=== PATIENT | male | born 1945 | race Caucasian/White ===

== ENCOUNTER 2017-01-04 09:54 | Inpatient (IN) | payer OTHER, MEDICARE ==
[~2017-01-04 09:54] MED LIST: BACITRACIN 50,000 UNITS/10 ML SYR IRR ONE; BUPIVACAINE/EPI 0.25% 30 ML SDV ONE; CHLORHEXIDINE GLUC HIBICLENS 118 ML BTL TP ONE; SKIN ADHESIVE (DERMABOND) 1 EACH TP ONE; THROMBIN (BOVINE) 20,000 UNIT VIAL TP ONE; ceFAZolin 2 GM/DEXTROSE 100 ML IV ONE
[2017-01-04] MEDS ORDERED: LIDOCAINE 1% 5 ML SDV ID PRN (10:15)
[2017-01-04] MEDS ORDERED: LR 1,000 ML IV ONE (10:15)
[2017-01-04] MEDS ORDERED: CEFAZOLIN 2 GM/DEXTROSE/100 ML BAG IV ONE (10:25)
[2017-01-04] MEDS ORDERED: morphINE PF 5 MG/10 ML INJ IT ONE (10:30)
[2017-01-04] MEDS ORDERED: MIDAZOLAM 2 MG/2 ML VIAL ONE (11:49)
[2017-01-04] MEDS ORDERED: KETAMINE 100 MG/10 ML SYR IVP ONE (11:59)
[2017-01-04] MEDS ORDERED: fentaNYL 100 MCG/2 ML INJ ONE ×2 (11:59→17:44)
[2017-01-04] MEDS ORDERED: REMIFENTANIL HCL 1 MG VIAL ONE ×2 (11:59→15:16)
[2017-01-04] MEDS ORDERED: PROPOFOL 200 MG/20 ML VIAL ONE (11:59)
[2017-01-04] MEDS ORDERED: PROPOFOL/EMULSION 500 MG/50 ML BOTTLE IV ONE ×2 (12:00→15:16)
[2017-01-04] MEDS ORDERED: BUPIVACAINE/EPI 0.25% 30 ML SDV ONE (12:11)
[2017-01-04] MEDS ORDERED: PETROLAT,WHT/MIN OIL/SOD CHL 3.5 GM OPHT.OINT ONE (12:12)
[2017-01-04] MEDS ORDERED: THROMBIN (BOVINE) 5,000 UNIT VIAL TP ONE (13:05)
[2017-01-04] MEDS ORDERED: morphINE PF 5 MG/10 ML INJ ONE (15:41)
[2017-01-04] MEDS ORDERED: SKIN ADHESIVE (DERMABOND) 1 EACH TP ONE (16:54)
[2017-01-04] MEDS ORDERED: ONDANSETRON 4 MG/2 ML VIAL IVP PRN (17:22)
[2017-01-04] MEDS ORDERED: LACTULOSE 20 GM/30 ML UDCUP PO PRN (17:22)
[2017-01-04] MEDS ORDERED: ONDANSETRON DISINTEGRATING 4 MG TAB PO PRN (17:22)
[2017-01-04] MEDS ORDERED: MAGNESIUM HYDROXIDE 30 ML UDCUP PO PRN (17:22)
[2017-01-04] MEDS ORDERED: BISACODYL 10 MG SUPP PR PRN (17:22)
[2017-01-04] MEDS ORDERED: DIAZEPAM 10 MG/2 ML SYR IVP PRN (17:22)
[2017-01-04] MEDS ORDERED: diphenhydrAMINE 25 MG CAP PO PRN (17:22)
[2017-01-04] MEDS ORDERED: POLYETHYLENE GLYCOL 3350 17 GM PKT PO PRN (17:22)
[2017-01-04] MEDS ORDERED: NS W/ 20 KCl/L 1,000 ML IV SCH (17:30)
--- NOTE | 2017-01-04 17:31 | POSTOPPROG ---
Post Op Note Date of Operation: 01/04/17 Surgeon: Jp Johnston Business Process Specialist: MONO Campa PAC Anesthesia: GET(General Endotracheal) Pre-op Diagnosis: lumbar stenosis Post-op Diagnosis: lumbar stenosis Indication: lumbar stenosis, failure of medical management Procedure: L2-L5 TLIF/PSF, L3-4 laminectomy Inf/Abcess present in the surg proc area at time of surgery?: No EBL: 250cc Drains: oJrge BRANDON Addendum - Addendum .: S: low back pain O: NAD A&Ox3 MAEx4 5/5 and equal in BUE and BLE. JAYA serosanguineous A/P: 71 y/o male s/p L3/4 laminectomy, L2-L5 PSF/TLIF -Advance diet as tolerated -Optimize pain management -PT/OT -DVT prophx: TEDs, SCDs, Lovenox okay POD1 -Post op xrays pending -Please notify NS with any change in neuro/motor exam
[2017-01-04] MEDS ORDERED: HYDROmorphONE/DILAUDID 1 MG/ML SYR ONE (17:56)
--- NOTE | 2017-01-04 18:19 | GOP ---
[f rep st] OPERATIVE REPORT DATE OF OPERATION: 01/04/2017 SURGEON: Jp Johnston MD STEAM LOCOMOTIVE FIRER/FIREMAN: Miesha Campa PA-C. ANESTHESIA: General. PREOPERATIVE DIAGNOSIS: 1. Lumbar spondylosis. 2. Spinal stenosis, severe at L3-L4, moderate at L2-3 and L4-5. 3. Scoliosis. 4. Treatment refractory to nonoperative intervention. POSTOPERATIVE DIAGNOSIS: 1. Lumbar spondylosis. 2. Spinal stenosis, severe at L3-L4, moderate at L2-3 and L4-5. 3. Scoliosis. 4. Treatment refractory to nonoperative intervention. PROCEDURE PERFORMED: 1. Posterior arthrodesis with approach to L2, L3, L4, and L5. 2. Posterolateral fusion with bilateral pedicle screw placement into L2, L3. L4 , and L5 from the [employer] System. 3. Decompressive laminectomy with bilateral medial facetectomies at L3-L4. 4. Right-sided L2-L3 transforaminal lumbar interbody fusion with a 7 x 28 mm titanium PEEK elevate cage filled with morselized autograft and allograft. 5. Right-sided L3-L4 transforaminal lumbar interbody fusion with a 7 x 28 mm titanium PEEK elevate cage filled with morselized autograft and allograft. 6. Right-sided L4-L5 transforaminal lumbar interbody fusion with an 8 x 28 mm titanium PEEK elevate cage filled with morselized autograft and allograft. 7. Posterolateral fusion on the left between L2 and L5 with morselized autograft and allograft. 8. Correction of lumbar scoliosis. 9. Use of intraoperative 3-D Stealth navigation. 10. Use of intraoperative fluoroscopy, less than 1 hour physician time. 11. Use of neuromonitoring. 12. Use of operating microscope. 13. Injection of preservative-free intrathecal narcotics. FINDINGS: Per imaging. SPECIMENS: None. ESTIMATED BLOOD LOSS: 250 mL. INDICATIONS: The patient is a 71-year-old gentleman who unfortunately has been suffering from low back pain with right lower extremity radiculopathy. He had evidence of lumbar spinal stenosis, worse at L3-L4 with spondylosis on the right side, L2-L3, L3-L4, L4-5 from scoliosis. After failing nonoperative intervention, after discussion of the risks, benefits, and treatment alternatives, we decided to proceed forth with surgery as described above. DESCRIPTION OF PROCEDURE: Patient was brought to the operating theater and underwent general endotracheal anesthesia without complications. Venodynes, RENU hose, and appropriate lines were placed by Anesthesia. He was flipped prone onto the Jorge table. All bony processes were inspected and padded. The lower lumbar region was prepped and draped in the usual sterile surgical fashion. A time-out was completed per protocol. The patient received antibiotics within 1 hour of incision. Using lateral fluoroscopy and a spinal needle, we picked our entry point to the L2 through L5 levels. This was marked in the midline. The incision then infiltrated with Marcaine with epinephrine. The incision was taken down with the scalpel blade, and using the monopolar, taken down the midline through the lumbodorsal fascia. A subperiosteal dissection carried out to the transverse processes of L2, L3, L4, L5. Care was taken to preserve the L1 and L2 facet joints. Deep retractors were placed to maintain our exposure. We attached the 3D Stealth navigation clamp to the spinous process of L4 and completed a 3D Stealth navigation spin. Using 3D Stealth navigation, we placed the towboat pilot holes for the bilateral pedicle screws into L2, L3, L4, and L5. All holes were manually palpated with no evidence of any cortical breaches. We then tapped and placed 6.5 mm screws bilaterally into L2, L3, L4, and L5 from the [employer] system. Another 3D Stealth navigation spin demonstrated excellent placement of the hardware. At this point, the microscope was brought onto the field to assist with microscopic dissection and to maintain illumination and magnification. Using a combination of the bur tip on the drill, Kerrison punches, and Le[place]ell rongeur, we completed a decompressive laminectomy with bilateral medial facetectomies at L3-L4. We also completed on the right-side at L2-L3 and L4-L5, hemilaminotomies with medial facetectomies, foraminotomies, and then resected the pars between L2-L3, L3-L4, and L4-L5. We moved up to L2-L3, where we distracted the interspace. We completed a right-sided L2-3 diskectomy. We prepared the cartilaginous endplates and measured interbody space. We placed a 7 x 28 mm titanium PEEK elevate cage filled with morselized autograft and allograft anteriorly and towards the midline. We packed additional morcellized autograft in the disk space for the interbody fusion. We let down the distraction, moved down to L3-L4, where we distracted the L3-4 disk space on the right side. We completed a right L3-4 diskectomy. We prepared the cartilaginous endplates and measured the interbody space. We placed a 7 x 28 mm titanium PEEK elevate cage filled with morselized autograft and allograft anteriorly and toward the midline. We packed additional morcellized autograft into the disk space for the interbody fusion and then moved down to L4-5, where we again distracted the L4-5 disk space on the right side. We completed a right -sided L4-5 diskectomy and prepared the cartilaginous endplates. We measured the interbody space and placed an 8 x 20 mm titanium PEEK elevate cage filled with morselized autograft and allograft anteriorly toward the midline. We packed additional morcellized autograft in the disk space interbody fusion. We noted a correction of his scoliosis after placement of these distraction interbody cages. At this point, we decorticated the bone on the left side between L2 and L5. We irrigated the wound copiously with bacitracin irrigation. We placed 2 lordotic rods into the heads of the screws between L2 and L5 and secured them down with cap screws, which were tightened per the teacher assistant's setting. We placed morselized autograft and allograft on the left side between L2 and L5 for posterolateral fusion. We injected preservative-free intrathecal narcotics and left a drain in subfascial space. The wound was then closed in multiple layers using Vicryl sutures in deep layers and Dermabond for the skin. The patient's wounds were dressed sterilely. He was flipped supine onto the transport cart. He was still asleep at the time of this dictation. There were no complications and no noted changes on neuromonitoring throughout the procedure. COMPLICATIONS: None. /[id number]/MODL MTDD
[2017-01-04] MEDS: METHOCARBAMOL 750 MG TAB PO PRN (18:41)
[2017-01-04] MEDS: oxyCODONE IR 5 MG TAB PO PRN (18:41)
[2017-01-04] MEDS: SENNOSIDES/DOCUSATE SODIUM TAB PO SCH (19:48)
[2017-01-04] MEDS ORDERED: FAMOTIDINE 20 MG/NACL 50 ML IV SCH (21:00)
[2017-01-04] MEDS: DIAZEPAM 5 MG TAB PO PRN (21:40)
[2017-01-05] MEDS: oxyCODONE IR 5 MG TAB PO PRN ×5 (03:58→23:08)
[2017-01-05] MEDS: METHOCARBAMOL 750 MG TAB PO PRN ×3 (03:58→18:41)
[2017-01-05] MEDS ORDERED: NON-FORMULARY NEW DRUG (Losartan Potassium [Cozaar] 100 MG) PO SCH (09:00)
--- NOTE | 2017-01-05 10:05 | SOAPPROG ---
SOAP Progress Note Assessment/Plan: Assessment: POD1 s/p L2-S1 TLIF -Xrays -pain control -PT/OT/speech -TEDS/SCD's/Lovenox -Continue JAYA: 243 overnight -Follow wound drainage. Dry in dressing at this time -Call for change in neuro status 01/05/17 10:04 01/05/17 10:06 01/05/17 10:18 Subjective: Doing well. Leg pain completely resolved, some new anterior thigh numbness likely secondary to positioning will resolve, back pain well controlled, ambulating with PT. Per nursing dressing and bed were soaked this am with blood. Dressing was changed, wound c/d/i with no drainage or erythema. Objective: Vital Signs Temp Pulse Resp BP Pulse Ox 37.6 C 84 16 115/76 96 01/05/17 07:33 01/05/17 07:33 01/05/17 07:33 01/05/17 07:33 01/05/17 07:33 01/04/17 01/05/17 01/06/17 05:59 05:59 05:59 Intake Total 3050 Output Total 1783 950 Balance 1267 -950 AandOx3, PERRL, EOMI, no facial asymmetry or tongue deviation, MAEWx4 5/5, Dressing C/D/I drain with 243 out since surgery - Pending Discharge Pending Discharge Within 24 Hours: No Pending Discharge Within 48 Hours: Yes Pending Discharge Date: 01/07/17 Pending Discharge Time: 11:00 ICD10 Worksheet Patient Problems: Problems Problem Status Onset Scoliosis Acute Scoliosis Acute - ICD10 Problem Qualifiers (1) Scoliosis Qualifiers: Scoliosis type: S Idiopathic scoliosis type: I Spinal region: S (2) Scoliosis Qualifiers: Scoliosis type: S Idiopathic scoliosis type: I Spinal region: S
[2017-01-05] MEDS: LOSARTAN POTASSIUM 50 MG TAB PO SCH (10:09)
[2017-01-05] MEDS: LEVOTHYROXINE 100 MCG TAB PO SCH (10:09)
[2017-01-05] MEDS: SENNOSIDES/DOCUSATE SODIUM TAB PO SCH ×2 (10:10→23:09)
[2017-01-05] MEDS: FAMOTIDINE 20 MG TAB PO SCH ×2 (10:10→23:09)
[2017-01-05] MEDS: DIAZEPAM 5 MG TAB PO PRN ×2 (12:42→23:09)
[2017-01-05] MEDS: ACETAMINOPHEN 325 MG TAB PO PRN ×2 (14:37→23:28)
[2017-01-05] MEDS: ENOXAPARIN 40 MG/0.4 ML SYR SC SCH (18:40)
[2017-01-05 20:07] LABS: COLOR YELLOW; LEUKOCYTE ESTERASE,URINE NEGATIVE (NEGATIVE); NITRITE,URINE NEGATIVE (NEGATIVE)
[2017-01-06] MEDS: oxyCODONE IR 5 MG TAB PO PRN ×5 (03:34→21:38)
[2017-01-06] MEDS: METHOCARBAMOL 750 MG TAB PO PRN ×3 (07:34→19:47)
[2017-01-06] MEDS: ACETAMINOPHEN 325 MG TAB PO PRN (07:34)
[2017-01-06] MEDS: FAMOTIDINE 20 MG TAB PO SCH ×2 (07:38→19:47)
[2017-01-06] MEDS: LEVOTHYROXINE 100 MCG TAB PO SCH (07:38)
[2017-01-06] MEDS: SENNOSIDES/DOCUSATE SODIUM TAB PO SCH ×2 (07:38→19:47)
[2017-01-06] MEDS: ENOXAPARIN 40 MG/0.4 ML SYR SC SCH (07:39)
[2017-01-06] MEDS: LOSARTAN POTASSIUM 50 MG TAB PO SCH (08:45)
--- NOTE | 2017-01-06 10:24 | SOAPPROG ---
SOAP Progress Note Assessment/Plan: Assessment: POD2 s/p L2-S1 TLIF -Xrays: hardware in good position -pain control: well controlled on orals -PT/OT -TEDS/SCD's/Lovenox -Continue JAYA: per nursing, 90ml since 5pm yesterday, drain removed -Hypotensin with systolic in 80's completely asymptomatic, fever w/u negative -likely home tomorrow -Call for change in neuro status 01/05/17 10:04 01/05/17 10:06 01/05/17 10:18 01/06/17 10:20 Subjective: Doig well, pain controlled on orals primarily, using IS, denies dizziness or other symptoms of hypotension although states when younger he had orthostatic hypotension regularly, leg pain resolved, drain slowed down, right anterior thigh numbness resolving Objective: Vital Signs Temp Pulse Resp BP Pulse Ox 38.1 C 69 12 89/50 L 94 01/06/17 08:46 01/06/17 08:46 01/06/17 08:46 01/06/17 08:46 01/06/17 08:46 01/05/17 01/06/17 01/07/17 05:59 05:59 05:59 Intake Total 3050 1560 Output Total 1783 4060 Balance 1267 -2500 AandOx3, PERRL, EOMI, no facial asymmetry or tongue deviation, MAEWx 4 5/5, +LT , incision c/d/i - Pending Discharge Pending Discharge Within 24 Hours: Yes Pending Discharge Date: 01/07/17 Pending Discharge Time: 11:00 ICD10 Worksheet Patient Problems: Problems Problem Status Onset Scoliosis Acute Scoliosis Acute - ICD10 Problem Qualifiers (1) Scoliosis Qualifiers: Scoliosis type: S Idiopathic scoliosis type: I Spinal region: S (2) Scoliosis Qualifiers: Scoliosis type: S Idiopathic scoliosis type: I Spinal region: S
[2017-01-06 13:09] LABS: % IMMATURE GRANULYOCYTES 0.1 % (0.0-1.1); ABSOLUTE IMMATURE GRANULOCYTES 0.01 10^3/uL (0.00-0.10); ADD DIFF? NO; ADD MORPH? NO; ADD SCAN? NO; ATYPICAL LYMPHOCYTE FLAG 0 (0-99); FRAGMENT RBC FLAG 0 (0-99); HEMATOCRIT 37.2 % (40.0-51.0); HEMOGLOBIN 12.7 g/dL (13.7-17.5); LEFT SHIFT FLG 0 (0-99); LIPEMIA HEMOLYSIS FLAG 90 (0-99); MEAN CELL HEMOGLOBIN 34.1 pg (27.9-34.1); MEAN CELL HEMOGLOBIN CONCENTR. 34.1 g/dL (32.4-36.7); MEAN PLATELET VOLUME 10.7 fL (8.7-11.7); PLATELET CLUMPS FLAG 10 (0-99); PLATELET COUNT 135 10^3/uL (150-400); RED BLOOD CELL COUNT 3.72 10^6/uL (4.40-6.38); RED CELL DISTRIBUTION WIDTH 12.7 % (11.5-15.2)
[2017-01-06 14:17] VITALS: RESP 16
[2017-01-07] MEDS: oxyCODONE IR 5 MG TAB PO PRN ×3 (01:25→09:50)
[2017-01-07] MEDS: DIAZEPAM 5 MG TAB PO PRN (02:46)
[2017-01-07 08:06] VITALS: BP 102/63; PULSE 79; TEMP 100; O2SAT 93
[2017-01-07] MEDS: LOSARTAN POTASSIUM 50 MG TAB PO SCH (08:11)
[2017-01-07] MEDS: LEVOTHYROXINE 100 MCG TAB PO SCH (08:11)
--- NOTE | 2017-01-07 08:11 | NEUSURGPN ---
Assessment/Plan: POD3 s/p L2-S1 TLIF -Xrays: hardware in good position -pain control: well controlled on orals -PT/OT -TEDS/SCD's/Lovenox -likely home today -Call for change in neuro status Subjective: low back pain. Denies any dizziness, leg pain improved. Objective: NAD A&Ox3 MAEx4 5/5 and equal in BUE and BLE. Catheter Insertion Date: 01/04/17 - Physician Patient Seen by : Vickie Neurosurgery Physical Exam - Vitals, I&O, Labs I and O 01/06/17 01/07/17 01/08/17 05:59 05:59 05:59 Intake Total 1560 400 Output Total 4060 500 Balance -2500 -100 Intake: Oral (ml) 1560 400 Output: Urine (ml) 3600 500 Catheter 1600 Toilet 1350 500 Urinal 650 Wound Drainage (ml) 460 Right Posterior Back 460 Jorge Reynoso Other: Intake Quantity Yes Sufficient Number of Voids Toilet 4 Vital Signs Temp Pulse Resp BP Pulse Ox 37.7 C 79 16 102/63 93 01/07/17 08:06 01/07/17 08:06 01/07/17 08:06 01/07/17 08:06 01/07/17 08:06 Laboratory Results 01/06/17 13:01 ICD10 Worksheet Patient Problems: Problems Problem Status Onset Scoliosis Acute Scoliosis Acute
[2017-01-07] MEDS: METHOCARBAMOL 750 MG TAB PO PRN (08:12)
[2017-01-07] MEDS: FAMOTIDINE 20 MG TAB PO SCH (08:12)
[2017-01-07] MEDS: SENNOSIDES/DOCUSATE SODIUM TAB PO SCH (08:12)
[2017-01-07] MEDS: ENOXAPARIN 40 MG/0.4 ML SYR SC SCH (08:13)
== END 2017-01-07 10:23 | disposition home or self-care (01) | DRG 460 ==
LOC: F3N 09:54
PROVIDERS: ADMIT Neurological Surgery; ATTEND Neurological Surgery
PROC: 8E0WXBZ Computer Assisted Procedure of Trunk Region (ICD-10-PCS; principal; 2017-01-04 11:45)
PROC: 00NY0ZZ Release Lumbar Spinal Cord, Open Approach (ICD-10-PCS; principal; 2017-01-04 11:45)
PROC: 4A1004G Monitoring of Central Nervous Electrical Activity, Intraoperative, Open Approach (ICD-10-PCS; principal; 2017-01-04 11:45)
PROC: 0SB20ZZ Excision of Lumbar Vertebral Disc, Open Approach (ICD-10-PCS; principal; 2017-01-04 11:45)
PROC: 0SG10AJ Fusion of 2 or more Lumbar Vertebral Joints with Interbody Fusion Device, Posterior Approach, Anterior Column, Open Approach (ICD-10-PCS; principal; 2017-01-04 11:45)
DX: M47.816 Spondylosis without myelopathy or radiculopathy, lumbar region (principal); M41.86 Other forms of scoliosis, lumbar region; M43.16 Spondylolisthesis, lumbar region; I10 Essential (primary) hypertension; E03.9 Hypothyroidism, unspecified
CPT/HCPCS: 97116-GP; 97161-GP; 97165-GO; 97530-GP; C1713; G8978-GP-CJ; G8979-GP-CI; G8980-GP-CI; G8987-GO-CI; G8988-GO-CI; G8989-GO-CI; J0690; J1170; J1650; J2250; J2274; J2704; J3010

== ENCOUNTER 2017-01-08 12:25 | Emergency (ER) | payer OTHER, MEDICARE ==
[2017-01-08 12:38] VITALS: RESP 18; TEMP 100.9
--- NOTE | 2017-01-08 13:00 | EDPHY ---
H & P Stated Complaint: Low Sats at home 73%, dry cough-back surgery 01/04 Time Seen by Provider: 01/08/17 12:58 HPI/ROS: CHIEF COMPLAINT: Hypoxemia HISTORY OF PRESENT ILLNESS: The patient presents to the ED for evaluation of hypoxemia. The patient is status post lumbar fusion done at the end of December. The patient has been using incentive spirometer home. The patient was noted to have an O2 sat of 73% prior to arrival. The patient does have a dry nonproductive cough which has been somewhat chronic. The patient denies weight gain, asymmetric calf pain or swelling, chest pain or additional complaints. The patient has no prior history of cardiac or pulmonary disease. REVIEW OF SYSTEMS: A comprehensive 10 point review of systems is otherwise negative aside from elements mentioned in the history of present illness. Source: Patient Exam Limitations: No limitations - Personal History Current Tetanus/Diphtheria Vaccine: Unsure Current Tetanus Diphtheria and Acellular Pertussis (TDAP): Unsure - Medical/Surgical History Hx Asthma: No Hx Chronic Respiratory Disease: No Hx Diabetes: No Hx Cardiac Disease: No Hx Renal Disease: No Hx Cirrhosis: No Hx Alcoholism: No Hx HIV/AIDS: No Hx Splenectomy or Spleen Trauma: No Other PMH: sciatica, HTN, GERD, hypothyroidism. knee surgery, S2-5 fusion-2016 - Social History Smoking Status: Former smoker - Physical Exam Exam: General Appearance: Alert, no distress Eyes: Pupils equal and round no pallor or injection ENT, Mouth: Mucous membranes moist Respiratory: There are no retractions, lungs are clear to auscultation Cardiovascular: Regular rate and rhythm Gastrointestinal: Abdomen is soft and nontender, no masses, bowel sounds normal Neurological: 5/5 strength noted bilateral upper lower extremities Skin: Surgical incision clean dry and intact Musculoskeletal: Neck is supple nontender Extremities: symmetrical, full range of motion Psychiatric: Patient is oriented X 3, there is no agitation Constitutional: Initial Vital Signs Temperature (C) 38.3 C 01/08/17 12:33 Heart Rate 98 01/08/17 12:33 Respiratory Rate 18 01/08/17 12:33 Blood Pressure 106/71 01/08/17 12:33 O2 Sat (%) 91 L 01/08/17 12:33 O2 Delivery Mode Room Air O2 (L/minute) 2.5 Allergies/Adverse Reactions: tramadol Allergy (Verified 01/08/17 12:38) Other-Enter Comments Home Medications: Medication Instructions Recorded Levothyroxine [Synthroid 100 mcg 100 mcg PO DAILY 08/24/15 (*)] Losartan Potassium [Cozaar] 100 mg PO DAILY 08/24/15 Multivitamins [Multivitamin (*)] 1 tab PO DAILY 12/17/16 Testosterone Cypionate 200 mg IM Q14D 12/17/16 Methocarbamol [Robaxin 750 mg (*)] 750 mg PO QID PRN #0 tab 01/07/17 Sennosides/Docusate Sodium 1 - 2 tab PO BID #0 tab 01/07/17 [Senokot-S] oxyCODONE IR [Oxycodone Ir (*)] 5 - 10 mg PO Q4HRS PRN #0 tab 01/07/17 Valium 01/08/17 Medical Decision Making - Diagnostics EKG Interpretation: EKG: Complete interpretation has been separately recorded in the [employer] archive. Summary impression: Sinus rhythm, rate 82, right axis deviation, nonspecific ST T wave changes noted Imaging: Imaging Impressions Chest/Thorax CTA 01/08/17 13:24 Impression: 1. No evidence of thrombopulmonary embolic disease. 2. Favor left lower lobe pneumonia or aspiration rather than atelectasis. 3. No suspicious pulmonary nodule or lymphadenopathy. Findings discussed with Emergency Department physician, Dr. Pierre Huizar, on January 08, 2017 at 1424 hours. ED Course/Re-evaluation: The patient presents to the ED for evaluation of hypoxemia during the postoperative period of a recent lumbar spine surgery. The patient was noted to have low-grade fever in the ED. The patient was significantly hypoxemic. The patient did have supplemental oxygen applied. The patient was taken for a stat CT scan of the chest which demonstrates pneumonia but no evidence of pulmonary embolism or other acute abnormality. The patient does have evidence of a pneumonia noted on his chest CT scan. He has an oxygen requirement of 2 liters/minute. The patient was offered admission to the hospital however feel strongly he wants to go home. The patient will be set up with home oxygen. The patient was started on Augmentin in the emergency department will be discharged on Augmentin. He will follow up with his primary care provider for a recheck in the next 2 days. The patient does understand return to the ED for worsening dyspnea or other concerns. Differential Diagnosis: Differential diagnosis considered includes pneumonia, bronchitis, pulmonary embolism, congestive heart failure - Data Points Laboratory Results: Laboratory Results 01/08/17 13:11 01/08/17 01/08/17 13:11 13:09 WBC 9.65 10^3/uL H 10^3/uL (3.80-9.50) RBC 3.67 10^6/uL L 10^6/uL (4.40-6.38) Hgb 12.3 g/dL L g/dL (13.7-17.5) POC Hgb 12.9 gm/dL L gm/dL (14.5-17.3) Hct 35.1 % L % (40.0-51.0) POC Hct 38 % L % (42.8-50.6) MCV 95.6 fL fL (81.5-99.8) MCH 33.5 pg pg (27.9-34.1) MCHC 35.0 g/dL g/dL (32.4-36.7) RDW 12.2 % % (11.5-15.2) Plt Count 210 10^3/uL D 10^3/uL (150-400) MPV 10.7 fL fL (8.7-11.7) Neut % (Auto) 83.6 % H % (39.3-74.2) Lymph % (Auto) 6.5 % L % (15.0-45.0) [place] % (Auto) 8.5 % % (4.5-13.0) Eos % (Auto) 0.6 % % (0.6-7.6) Baso % (Auto) 0.4 % % (0.3-1.7) Nucleat RBC Rel Count 0.0 % % (0.0-0.2) Absolute Neuts (auto) 8.06 10^3/uL H 10^3/uL (1.70-6.50) Absolute Lymphs (auto) 0.63 10^3/uL L 10^3/uL (1.00-3.00) Absolute Monos (auto) 0.82 10^3/uL H 10^3/uL (0.30-0.80) Absolute Eos (auto) 0.06 10^3/uL 10^3/uL (0.03-0.40) Absolute Basos (auto) 0.04 10^3/uL 10^3/uL (0.02-0.10) Absolute Nucleated RBC 0.00 10^3/uL 10^3/uL (0-0.01) Immature Gran % 0.4 % % (0.0-1.1) Immature Gran # 0.04 10^3/uL 10^3/uL (0.00-0.10) POC Sodium 133 mEq/L L mEq/L (134-144) POC Potassium 3.8 mEq/L mEq/L (3.3-5.0) POC Chloride 93 mEq/L L mEq/L (96-108) POC BUN 17 mg/dL mg/dL (7-23) POC Creatinine 1.6 mg/dL H mg/dL (0.8-1.5) POC Glucose 142 mg/dL H mg/dL (70-100) Medications Given: Discontinued Medications Amoxicillin/Clavulanate Potassium (Augmentin 875mg) 875 mg PO EDNOW ONE PRN Reason: Protocol Stop: 01/08/17 15:10 Last Admin: 01/08/17 15:33 Dose: 875 mg Sodium Chloride (Ns) 1,000 mls @ 0 mls/hr IV ONCE ONE PRN Reason: Wide Open Stop: 01/08/17 13:24 Last Admin: 01/08/17 13:29 Dose: 1,000 mls Point of Care Test Results: 01/08/17 13:09 POC Sodium 133 L POC Potassium 3.8 POC Chloride 93 L POC BUN 17 POC Creatinine 1.6 H POC Glucose 142 H Departure - Departure Disposition: Home, Routine, Self-Care Clinical Impression: Pneumonia Qualifiers: Pneumonia type: aspiration pneumonia Aspiration pneumonia type: due to gastric secretions Laterality: left Lung location: lower lobe of lung Qualified Code(s) : J69.0 - Pneumonitis due to inhalation of food and vomit Condition: Good Instructions: Community Acquired Pneumonia (ED) Additional Instructions: 1. Please take antibiotics as directed. 2. Please use oxygen as directed. 3. Please return to the ED for worsening shortness of breath or other concerns. You have been offered admission to the hospital for observation of your pneumonia and declined. Please follow-up with your primary care provider for a recheck in the 1-2 days. Referrals: Dani Chinchilla MD [Primary Care Provider] - As per Instructions
--- NOTE | 2017-01-08 13:20 | CPEKG ---
Heart Rate: 82 RR Interval: 732 P-R Interval: 172 QRSD Interval: 88 QT Interval: 364 QTC Interval: 425 P [place]: 71 QRS [place]: 100 T Wave [place]: -20 EKG Severity - ABNORMAL ECG - EKG Impression: SINUS RHYTHM EKG Impression: RIGHT AXIS DEVIATION Electronically Signed By: Pierre Huizar 08-Jan-2017 15:52:50
[2017-01-08] MEDS ORDERED: NS 1,000 ML IV ONE (13:23)
[2017-01-08] MEDS ORDERED: IOPAMIDOL (ISOVUE 370) 100 ML BTL IV ONE (13:38)
[2017-01-08 13:45] LABS: % IMMATURE GRANULYOCYTES 0.4 % (0.0-1.1); ABSOLUTE IMMATURE GRANULOCYTES 0.04 10^3/uL (0.00-0.10); ADD DIFF? NO; ADD MORPH? NO; ADD SCAN? NO; ATYPICAL LYMPHOCYTE FLAG 0 (0-99); FRAGMENT RBC FLAG 10 (0-99); HEMATOCRIT 35.1 % (40.0-51.0); HEMOGLOBIN 12.3 g/dL (13.7-17.5); LEFT SHIFT FLG 20 (0-99); LIPEMIA HEMOLYSIS FLAG 90 (0-99); MEAN CELL HEMOGLOBIN 33.5 pg (27.9-34.1); MEAN CELL VOLUME 95.6 fL (81.5-99.8); MEAN PLATELET VOLUME 10.7 fL (8.7-11.7); PLATELET CLUMPS FLAG 10 (0-99); PLATELET COUNT 210 10^3/uL (150-400); RED BLOOD CELL COUNT 3.67 10^6/uL (4.40-6.38); RED CELL DISTRIBUTION WIDTH 12.2 % (11.5-15.2)
[2017-01-08] MEDS ORDERED: AMOXICILLIN/CLAVULANATE POT 875/125 MG TAB PO ONE ×2 (15:09→16:37)
[2017-01-08 15:49] VITALS: BP 105/73; PULSE 72; O2SAT 86
== END 2017-01-08 17:05 | disposition home or self-care (01) ==
DX: J69.0 Pneumonitis due to inhalation of food and vomit (principal); I10 Essential (primary) hypertension; Z87.891 Personal history of nicotine dependence
CPT/HCPCS: 71275; 93005; 96360; 99285; Q9967; 82947-QW

== ENCOUNTER → 2017-02-11 | Outpatient (CLI) | payer OTHER, MEDICARE | LOC: FIMAGING 10:55 | PROVIDERS: ATTEND Neurological Surgery | DX: Z98.1 Arthrodesis status (principal) ==